=== PATIENT | female | born 1935 | race Hispanic/Latino ===

== ENCOUNTER 2017-11-11 13:26 | Emergency (ER) | payer MEDICARE ==
[2017-11-11 13:26] VITALS: BMI 24.9
[2017-11-11 13:36] VITALS: BP 142/58; PULSE 71; RESP 16; TEMP 98.2; O2SAT 97
[2017-11-11 14:10] LABS: URINE BILIRUBIN NEGATIVE (NEGATIVE); URINE BLOOD NEGATIVE (NEGATIVE); URINE GLUCOSE (UA) NEGATIVE (NEGATIVE); URINE LEUKOCYTE ESTERASE NEGATIVE Leu/uL (NEGATIVE); URINE NITRATE NEGATIVE (NEGATIVE); URINE PROTEIN NEGATIVE mg/dL (<30 mg/dL); URINE UROBILINOGEN 0.2 E.U./dL (<1 E.U./dL)
--- NOTE | 2017-11-11 14:14 | ED PDOC ---
Arrival/HPI - General Chief Complaint: Female Genitourinary Time Seen by Provider: 11/11/17 13:41 Historian: Patient - History of Present Illness Narrative History of Present Illness (Text): 11/11/17 14:08 82yo female with PMHx of GERD present with complaint of sore throat x few days. she also report dyspepsia and urine odor since July. States she saw her PMD in July for routine check up and was placed on abx for abx. States she finished the abx and took another antibiotics for dental infection. States she however continue to have these symptoms and decided to come to ED today for evaluation. She denies fever, chills, abdominal pain, nausea, vomiting, drooling , dysphagia, chest pain, any other complaint. Past Medical History - Provider Review Nursing Documentation Reviewed: Yes - Infectious Disease Hx of Infectious Diseases: None - Cardiac Hx Cardiac Disorders: Yes Hx Hypertension: Yes Hx Pacemaker: No - Pulmonary Hx Respiratory Disorders: No - Neurological Hx Neurological Disorder: No Hx Paralysis: No - HEENT Hx HEENT Disorder: No - Renal Hx Renal Disorder: No - Endocrine/Metabolic Hx Endocrine Disorders: Yes Hx Hypothyroidism: Yes - Hematological/Oncological Hx Blood Transfusions: No Hx Blood Transfusion Reaction: No - Integumentary Hx Dermatological Disorder: No - Musculoskeletal/Rheumatological Hx Musculoskeletal Disorders: Yes - Gastrointestinal Hx Gastrointestinal Disorders: Yes Hx Diverticulitis: Yes Other/Comment: celiac - Genitourinary/Gynecological Hx Genitourinary Disorders: No - Psychiatric Hx Emotional Abuse: No Hx Physical Abuse: No Hx Substance Use: No - Surgical History Other/Comment: polyps removed, colonoscopy and endo done 4 years ago - Anesthesia Hx Anesthesia: Yes Hx Anesthesia Reactions: No Hx Malignant Hyperthermia: No - Suicidal Assessment Feels Threatened In Home Enviroment: No Family/Social History - Physician Review Nursing Documentation Reviewed: Yes Family/Social History: Unknown Family HX Smoking Status: Never Smoked Hx Alcohol Use: Yes (OCC) Frequency of alcohol use: Socially Hx Substance Use: No Hx Substance Use Treatment: No Allergies/Home Meds Allergies/Adverse Reactions: Allergies gluten Allergy (Mild, Verified 11/11/17 13:28) DIARRHEA Home Medications: Home Meds Medication Instructions Recorded Confirmed Levothyroxine Sodium [Synthroid] 0.075 mg PO QAM 07/28/12 11/11/17 Lisinopril 5 mg PO DAILY 03/06/15 11/11/17 Multivit,Calc,Mins/Iron/Folic 1 cap PO DAILY 03/06/15 11/11/17 [One-A-Day Women's] Review of Systems - Physician Review All systems were reviewed & negative as marked: Yes - Review of Systems Constitutional: Normal Eyes: Normal ENT: Sore Throat Respiratory: Normal Cardiovascular: Normal Gastrointestinal: Other (Dyspepsia). absent: Abdominal Pain, Constipation, Diarrhea, Nausea, Vomiting, Hematemesis Genitourinary Female: Normal, Other (Odrous urine). absent: Dysuria, Frequency , Hematuria Musculoskeletal: Normal Skin: Normal Neurological: Normal Endocrine: Normal Hemo/Lymphatic: Normal Psychiatric: Normal Physical Exam Vital Signs Reviewed: Yes Vital Signs Temp Pulse Resp BP Pulse Ox 11/11/17 13:34 98.2 F 71 16 142/58 L 97 Temperature: Afebrile Blood Pressure: Normal Pulse: Regular Respiratory Rate: Normal Appearance: Positive for: Well-Appearing, Non-Toxic, Comfortable Pain Distress: None Mental Status: Positive for: Alert and Oriented X 3 - Systems Exam Head: Present: Atraumatic, Normocephalic Pupils: Present: PERRL Extroacular Muscles: Present: EOMI Conjunctiva: Present: Normal Mouth: Present: Moist Mucous Membranes Pharnyx: Present: ERYTHEMA. No: EXUDATE, TONSILS ENLARGED, Peritonsilar Swelling, Uvular Deviation, Muffled/Hoarse Voice, Strider, Soft Palate/Uvular Edema Neck: Present: Normal Range of Motion Respiratory/Chest: Present: Clear to Auscultation, Good Air Exchange. No: Respiratory Distress, Accessory Muscle Use Cardiovascular: Present: Regular Rate and Rhythm, Normal S1, S2. No: Murmurs Abdomen: Present: Normal Bowel Sounds, Other (soft). No: Tenderness, Distention , Peritoneal Signs, Rebound, Guarding, McBurney's Point Tender, Rovsing's Sign Present Back: Present: Normal Inspection. No: CVA Tenderness Upper Extremity: Present: Normal Inspection. No: Cyanosis, Edema Lower Extremity: Present: Normal Inspection. No: Edema Neurological: Present: GCS=15, CN II-XII Intact, Speech Normal Skin: Present: Warm, Dry, Normal Color. No: Rashes Psychiatric: Present: Alert, Oriented x 3, Normal Insight, Normal Concentration Medical Decision Making ED Course and Treatment: 11/11/17 19:04 Pt was comfortable in ED. Hemodynamically stable and in no distress in ED. Lab was unremarkable. Pt's symptoms is likely GERD secondary to her history of hiatal hernia. Result was DW the pt. She was DC with Protonix. Referred to her PMD. Urine culture ordered. - Lab Interpretations Lab Results: 11/11/17 14:00 11/11/17 14:00 Lab Results 11/11/17 14:00: PT 12.5, INR 1.14 H, APTT 29.5 11/11/17 14:00: Grp A Beta Strep Ag Negative 11/11/17 14:00: Sodium 139, Potassium 4.3, Chloride 99, Carbon Dioxide 28, Anion Gap 16, BUN 15, Creatinine 1.0, Est GFR ( Amer) > 60, Est GFR (Non- Af Amer) 53, Random Glucose 113 H, Calcium 9.2, Total Bilirubin 0.6, AST 30, ALT 40, Alkaline Phosphatase 113, Total Protein 7.9, Albumin 4.2, Globulin 3.7, Albumin/Globulin Ratio 1.2 11/11/17 14:00: WBC 10.6 D, RBC 4.81, Hgb 14.5, Hct 43.7, MCV 90.9, MCH 30.1, MCHC 33.2, RDW 13.4, Plt Count 226, MPV 9.6, Gran % 72.5 H, Lymph % (Auto) 15.9 L, [place] % (Auto) 11.3 H, Eos % (Auto) 0.2 L, Baso % (Auto) 0.1, Gran # 7.67 H, Lymph # 1.7, [place] # 1.2 H, Eos # 0.0, Baso # 0.01 11/11/17 13:45: Urine Color Yellow, Urine Appearance Clear, Urine pH 6.0, Ur Specific [place] 1.015, Urine Protein Negative, Urine Glucose (UA) Negative, Urine Ketones Negative, Urine Blood Negative, Urine Nitrate Negative, Urine Bilirubin Negative, Urine Urobilinogen 0.2, Ur Leukocyte Esterase Negative - Medication Orders Current Medication Orders: Discontinued Medications Famotidine (Pepcid) 20 mg IVP STAT STA Stop: 11/11/17 13:54 Last Admin: 12/29/17 14:09 Dose: 20 mg IVP Administration Document 11/11/17 14:09 CNR (Rec: 11/11/17 14:09 CNR [id number]) Charges for Administration # of IVP Administrations 1 Disposition/Present on Arrival - Present on Arrival Any Indicators Present on Arrival: No History of DVT/PE: No History of Uncontrolled Diabetes: No Urinary Catheter: No History of Decub. Ulcer: No History Surgical Site Infection Following: None - Disposition Have Diagnosis and Disposition been Completed?: Yes Diagnosis: GERD (gastroesophageal reflux disease) Disposition: HOME/ ROUTINE Disposition Time: 15:00 Patient Plan: Discharge Condition: STABLE Discharge Instructions (ExitCare): Gastroesophageal Reflux Disease (ED) Additional Instructions: Drink plenty of fluid, rest and follow up with your Doctor Return to ED for any new or worsening symptoms Prescriptions: Pantoprazole Sodium [Protonix] 40 mg PO DAILY #15 ect Referrals: Young Ugarte DO [Primary Care Provider] - Follow up with primary Forms: Indexing (Georgian)
[2017-11-11 14:15] LABS: URINE APPEARANCE CLEAR (CLEAR); URINE COLOR YELLOW (YELLOW)
[2017-11-11 14:17] LABS: BASO # 0.01 K/mm3 (0.0-2.0); BASO % 0.1 % (0.0-3.0); EOS % 0.2 % (1.5-5.0); GRAN # 7.67 (1.4-6.5); GRAN % 72.5 % (50.0-68.0); HEMOGLOBIN 14.5 g/dL (12.0-16.0); LYMPH # 1.7 (1.2-3.4); LYMPH % 15.9 % (22.0-35.0); MEAN CELL VOLUME 90.9 fl (80.0-105.0); MEAN CORPUSCULAR HEMOGLOBIN 30.1 pg (25.0-35.0); MEAN CORPUSCULAR HGB CONC 33.2 g/dl (31.0-37.0); MEAN PLATELET VOLUME 9.6 fl (7.0-11.0); MONO # 1.2 (0.1-0.6); MONO % 11.3 % (1.0-6.0); RBC 4.81 10^6/uL (3.5-6.1); RED CELL DISTRIBUTION WIDTH 13.4 % (11.5-14.5); WHITE BLOOD COUNT 10.6 10^3/ul (4.5-11.0)
[2017-11-11 14:25] LABS: ALB/GLOB RATIO 1.2 (1.1-1.8); ALBUMIN 4.2 g/dL (3.0-4.8); ALT/SGPT 40 U/L (7-56); AST/SGOT 30 U/L (14-36); BLOOD UREA NITROGEN 15 mg/dL (7-21); CALCIUM 9.2 mg/dL (8.4-10.5); GFR AFRICAN-AMERICAN > 60; GFR NON-AFRICAN AMERICAN 53
[2017-11-11 14:56] LABS: INR 1.14 (0.93-1.08); PARTIAL THROMBOPLASTIN TIME 29.5 Seconds (25.1-36.5); PROTHROMBIN TIME 12.5 SECONDS (9.4-12.5)
== END 2017-11-11 15:16 | disposition home or self-care (01) ==
LOC: ED 13:26
DX: K21.9 Gastro-esophageal reflux disease without esophagitis (principal); I10 Essential (primary) hypertension